=== PATIENT | female | born 1955 | race Hispanic/Latino ===

== ENCOUNTER 2021-11-18 13:13 | Outpatient (CLI) | payer OTHER | END 2021-11-18 13:14 | disposition home or self-care (01) | LOC: CSHMAMMO 13:13 | PROVIDERS: ATTEND Internal Medicine | DX: Z12.31 Encounter for screening mammogram for malignant neoplasm of breast (principal); M85.89 Other specified disorders of bone density and structure, multiple sites; Z78.0 Asymptomatic menopausal state | CPT/HCPCS: 77063; 77067; 77080 ==

== ENCOUNTER 2023-03-07 11:10 | Outpatient (CLI) | payer OTHER | END 2023-03-07 11:11 | disposition home or self-care (01) | LOC: CSHMAMMO 11:10 | PROVIDERS: ATTEND Internal Medicine | DX: Z12.31 Encounter for screening mammogram for malignant neoplasm of breast (principal) | CPT/HCPCS: 77063; 77067 ==

== ENCOUNTER 2024-10-02 14:20 | Outpatient (CLI) | payer OTHER | END 2024-10-02 14:21 | disposition home or self-care (01) | LOC: CSHMAMMO 14:20 | PROVIDERS: ATTEND Internal Medicine | DX: Z12.31 Encounter for screening mammogram for malignant neoplasm of breast (principal) | CPT/HCPCS: 77063; 77067 ==